=== PATIENT | female | born 1985 | race Caucasian/White ===

== ENCOUNTER 2019-07-08 16:30 | Emergency (ER) | payer MEDICAID ==
[~2019-07-08] VITALS: Ht 170.2 cm; Wt 68.9 kg
[~2019-07-08 16:30] MED LIST: GABA100C9 PO; HYDR10TA35 PO
[2019-07-08 16:45] VITALS: BP 104/63
[2019-07-08] MEDS ORDERED: ONDANSETRON ODT 4 MG TAB PO ONE (21:15)
== END 2019-07-08 21:51 | disposition home or self-care (01) ==
LOC: ER 16:34
DX: G43.909 Migraine, unspecified, not intractable, without status migrainosus (principal); F17.210 Nicotine dependence, cigarettes, uncomplicated
CPT/HCPCS: 70450; 81025; 99284; Q0162

== ENCOUNTER 2020-07-19 17:53 | Emergency (ER) | payer MEDICAID ==
[~2020-07-19] VITALS: Ht 170.2 cm; Wt 61.7 kg
[2020-07-19 20:33] VITALS: BP 108/71
== END 2020-07-19 21:05 | disposition home or self-care (01) ==
LOC: ER 17:53
DX: S63.656A Sprain of metacarpophalangeal joint of right little finger, initial encounter (principal); S69.91XA Unspecified injury of right wrist, hand and finger(s), initial encounter; F17.210 Nicotine dependence, cigarettes, uncomplicated; Z79.899 Other long term (current) drug therapy; X58.XXXA Exposure to other specified factors, initial encounter; Y93.89 Activity, other specified; Y92.89 Other specified places as the place of occurrence of the external cause; Y99.8 Other external cause status
CPT/HCPCS: 29130; 73140